=== PATIENT | male | born 1980 | race Hispanic/Latino ===

== ENCOUNTER 2019-04-04 13:21 | Emergency (ER) | payer SELFPAY ==
--- NOTE | 2019-04-04 14:34 | RAD REPORT ---
EXAM DESCRIPTION: RAD - Foot Right 3 View - 04/04/2019 2:01 pm CLINICAL HISTORY: Right foot pain status post injury FINDINGS: Lateral soft tissue swelling. Curvilinear bony density lies adjacent to the lateral aspect of the talus. This is suspicious for an avulsion fracture. No dislocation
--- NOTE | 2019-04-04 14:34 | RAD REPORT ---
EXAM DESCRIPTION: RAD - Ankle Right 3 View - 04/04/2019 2:01 pm CLINICAL HISTORY: Right ankle pain status post fall FINDINGS: Lateral soft tissue swelling. Curvilinear bony density lies adjacent to the lateral aspect of the talus. This is suspicious for an avulsion fracture. No dislocation
--- NOTE | 2019-04-04 14:35 | RAD REPORT ---
EXAM DESCRIPTION: RAD - Tib Fib Right - 04/04/2019 2:01 pm CLINICAL HISTORY: Right leg pain status post injury FINDINGS: No fracture is seen involving the tibia or fibula
[2019-04-04] MEDS ORDERED: HYDROCODONE/APAP 10/325 TAB ONE (14:58)
[2019-04-04] MEDS ORDERED: IBUPROFEN 400 MG TAB ONE (15:00)
--- NOTE | 2019-04-04 15:43 | ER ---
Nurse's Notes [facility] Name: Gold Galindo Jr Age: 38 yrs Sex: Male : 1980 Arrival Date: 04/04/2019 Time: : Bed 10 Private MD: Diagnosis: Distal Fibular Fracture Presentation: 04/04 13:27 Presenting complaint: Slipped from second rung on ladder 10 days ago, c/o right ankle hb pain 02/20. Not able to bear weight. Transition of care: patient was not received from another setting of care. Onset of symptoms was March 26, 2019. Risk Assessment: Do you want to hurt yourself or someone else? Patient reports no desire to harm self or others. Initial Sepsis Screen: Does the patient meet any 2 criteria? No. Patient's initial sepsis screen is negative. Does the patient have a suspected source of infection? No. Patient's initial sepsis screen is negative. Care prior to arrival: None. 13:27 Method Of Arrival: Wheelchair hb 13:27 Acuity: [place] 4 hb Historical: - Allergies: 13:29 No Known Allergies; hb - Home Meds: 13:29 None [Active]; hb - PMHx: 13:29 None; hb - PSHx: 13:29 Appendectomy; hb - Immunization history:: Adult Immunizations up to date. - Social history:: Smoking status: Patient/guardian denies using tobacco. - Ebola Screening: : No symptoms or risks identified at this time. Screenin:04 Abuse screen: Denies threats or abuse. Denies injuries from another. Nutritional ss screening: No deficits noted. Tuberculosis screening: Never had TB. Fall Risk None identified. Assessment: 14:04 General: Appears in no apparent distress. comfortable, Behavior is calm, cooperative, ss Denies fever, feeling ill, fatigue, chills. Pain: Complains of pain in R ankle Pain currently is 9 out of 10 on a pain scale. Quality of pain is described as aching, tender, Pain began 10 days ago Is continuous. Neuro: Level of Consciousness is awake, alert, obeys commands, Oriented to person, place, time, situation. Cardiovascular: Capillary refill < 3 seconds is brisk in bilateral fingers. Respiratory: Airway is patent Respiratory effort is even, unlabored, Respiratory pattern is regular, symmetrical. GI: Abdomen is non-distended. : No signs and/or symptoms were reported regarding the genitourinary system. EENT: Nares are clear Throat is clear. Derm: Skin is intact, is healthy with good turgor, Skin is pink, warm \T\ dry. normal. Musculoskeletal: Circulation, motion, and sensation intact. Range of motion: intact in all extremities, Swelling absent. Vital Signs: 13:29 BP 123 / 82; Pulse 77; Resp 16; Temp 97.8; Pulse Ox 100% on R/A; Weight 99.79 kg; hb Height 5 ft. 7 in. (170.18 cm); Pain 9/10; 13:29 Body Mass Index 34.46 (99.79 kg, 170.18 cm) hb ED Course: 13:23 Patient arrived in ED. as 13:29 Triage completed. hb 13:29 Arm band placed on. hb 13:31 Chetan Le PA is PHCP. m 13:31 Ho Ennis MD is Attending Physician. jmm 14:01 Tib Fib Right XRAY In Process Unspecified. EDMS 14:01 Ankle Right 3 View XRAY In Process Unspecified. EDMS 14:01 Foot Right 3 View XRAY In Process Unspecified. EDMS 14:04 Damaris Kohler, RN is Primary Nurse. ss 14:04 Patient has correct armband on for positive identification. Bed in low position. ss 15:33 Orthoglass splint: Posterior short lleg splint applied on right leg. stirrup splint dh3 applied on right leg. capillary refill < 3 seconds, viewed by Chetan Le P.A. 15:42 Alli Voss MD is Referral Physician. [facility] 16:03 No provider procedures requiring assistance completed. Patient did not have IV access ss during this emergency room visit. Administered Medications: 15:02 Not Given (Patient Refused): [place] 10 mg-325 mg 1 tabs PO once; RASS on ADMIN: Combtv4, ss Very Agttd3, Agttd2, Rstlss1, AlertClm0, Drwsy-1, Lt Sdtn-2, Mod Sdtn-3, Dp Sdtn-4, UnArsble-5 15:03 Drug: Motrin 800 mg Route: PO; ss 15:31 Follow up: Response: No adverse reaction Outcome: 15:42 Discharge ordered by MD. flores 16:03 Discharged to home ambulatory. 16:03 Condition: good 16:03 Discharge instructions given to patient, family, Instructed on discharge instructions, follow up and referral plans. medication usage, Demonstrated understanding of instructions, follow-up care, medications, Prescriptions given X 1. 16:05 Patient left the ED. Signatures: Dispatcher [employer] EDMS Chetan Le PA PA jmm Martinez, Amelia as Smirch, Shelby, ANDREA RN Dinora Belcher RN RN Luz Gonsalves [facility]
--- NOTE | 2019-04-04 15:43 | EDPHYS ---
Physician Documentation [facility] Name: Gold Galindo Jr Age: 38 yrs Sex: Male : 1980 Arrival Date: 04/04/2019 Time: 13:23 Bed 10 Private MD: ED Physician Ho Ennis HPI: 04/04 13:33 This 38 yrs old Male presents to ER via Wheelchair with complaints of Ankle jmm Injury. 13:33 The patient presents with an injury, pain. Onset: The symptoms/episode began/occurred jmm acutely, just prior to arrival. Associated signs and symptoms: Pertinent positives: swelling, Pertinent negatives: fever, numbness. Modifying factors: The symptoms are alleviated by elevation of extremity, the symptoms are aggravated by weight bearing, movement. This is a 38 year old male with no chronic medical conditions that presents to the ED with complaints of right ankle pain after falling 2 feet off a ladder. Patient states his ankle rolled. Denies other injury. . Historical: - Allergies: 13:29 No Known Allergies; hb - Home Meds: 13:29 None [Active]; hb - PMHx: 13:29 None; hb - PSHx: 13:29 Appendectomy; hb - Immunization history:: Adult Immunizations up to date. - Social history:: Smoking status: Patient/guardian denies using tobacco. - Ebola Screening: : No symptoms or risks identified at this time. ROS: 13:33 Constitutional: Negative for fever, chills, and weight loss, Cardiovascular: Negative jmm for chest pain, palpitations, and edema, Respiratory: Negative for shortness of breath, cough, wheezing, and pleuritic chest pain. 13:33 MS/extremity: Positive for injury or acute deformity, pain, swelling. 13:33 All other systems are negative. Exam: 13:33 Constitutional: This is a well developed, well nourished patient who is awake, alert, jmm and in no acute distress. Head/Face: atraumatic. Eyes: EOMI, no conjunctival erythema appreciated ENT: Moist Mucus Membranes Neck: Trachea midline, Supple Chest/axilla: Normal chest wall appearance and motion. Cardiovascular: Regular rate and rhythm. No edema appreciated Respiratory: Normal respirations, no respiratory distress appreciated Abdomen/GI: Non distended, soft Back: Normal ROM Skin: General appearance color normal 13:33 Musculoskeletal/extremity: swelling noted to the right ankle, compartments are soft, right lateral malleolus TTP, right 5th metatarsal TTP, NVI, full dorsalis pulse. 13:33 Skin: Appearance: Color: normal in color. 13:33 Neuro: Orientation: is normal, Mentation: is normal, Memory: is normal. 13:33 Psych: Behavior/mood is pleasant, cooperative. Vital Signs: 13:29 BP 123 / 82; Pulse 77; Resp 16; Temp 97.8; Pulse Ox 100% on R/A; Weight 99.79 kg; hb Height 5 ft. 7 in. (170.18 cm); Pain 9/10; 13:29 Body Mass Index 34.46 (99.79 kg, 170.18 cm) hb Procedures: 13:33 Splinting: Splint applied to right leg using posterior with stirrup. applied by tech. [facility] nurse. Examined by me, post splint application: neurovascular intact, 2+ distal pulses palpable, brisk capillary refill noted, Patient tolerated well. MDM: 13:33 Patient medically screened. [facility] 15:39 Data reviewed: vital signs, nurses notes. [facility] 04/04 13:34 Order name: Tib Fib Right XRAY; Complete Time: 14:43 [facility] 04/04 13:34 Order name: Ankle Right 3 View XRAY; Complete Time: 14:43 [facility] 04/04 13:34 Order name: Foot Right 3 View XRAY; Complete Time: 14:43 [facility] 04/04 14:44 Order name: Posterior Orthoglass Ankle Splint; Complete Time: 15:31 [facility] Administered Medications: 15:02 Not Given (Patient Refused): [place] 10 mg-325 mg 1 tabs PO once; RASS on ADMIN: Combtv4, ss Very Agttd3, Agttd2, Rstlss1, AlertClm0, Drwsy-1, Lt Sdtn-2, Mod Sdtn-3, Dp Sdtn-4, UnArsble-5 15:03 Drug: Motrin 800 mg Route: PO; ss 15:31 Follow up: Response: No adverse reaction ss Disposition: 04/05 09:18 Co-signature as Attending Physician, Ho Ennis MD I agree with the assessment and kdr plan of care. Disposition: 04/04/19 15:42 Discharged to Home. Impression: Distal Fibular Fracture. - Condition is Stable. - Discharge Instructions: Ankle Fracture. - Prescriptions for Tylenol- Codeine #3 300-30 mg Oral Tablet - take 1 tablet by ORAL route every 6 hours As needed; 12 tablet. - Medication Reconciliation Form, Thank You Letter, Antibiotic Education, Prescription Opioid Use, Work release form form. - Follow up: Alli Voss MD; When: 2 - 3 days; Reason: Recheck today's complaints, Continuance of care, Re-evaluation by your physician. Signatures: Dispatcher [employer] EDMS Ho Ennis MD MD kdr Mickail, Joel, PA PA jmm Smirch, Shelby, RN RN ss Dinora Belcher RN RN Corrections: (The following items were deleted from the chart) 04/04 16:05 15:42 04/04/2019 15:42 Discharged to Home. Impression: Distal Fibular Fracture. ss Condition is Stable. Forms are Medication Reconciliation Form, Thank You Letter, Antibiotic Education, Prescription Opioid Use. Follow up: Dr. Alli Voss; When: 2 - 3 days; Reason: Recheck today's complaints, Continuance of care, Re-evaluation by your physician. sandra
== END 2019-04-04 16:05 | disposition home or self-care (01) ==
LOC: ER 13:21
DX: S82.831A Other fracture of upper and lower end of right fibula, initial encounter for closed fracture (principal); W17.89XA Other fall from one level to another, initial encounter; Y93.39 Activity, other involving climbing, rappelling and jumping off; Y92.9 Unspecified place or not applicable
CPT/HCPCS: 99284